=== PATIENT | female | born 1955 | race Caucasian/White ===

== ENCOUNTER 2018-09-08 15:24 | Emergency (ER) | payer OTHER ==
[2018-09-08] MEDS: IBUPROFEN 200 MG TAB PO (16:55)
== END 2018-09-08 18:45 | disposition home or self-care (01) ==
LOC: FTE 15:24
DX: S92.324A Nondisplaced fracture of second metatarsal bone, right foot, initial encounter for closed fracture (principal); W01.198A Fall on same level from slipping, tripping and stumbling with subsequent striking against other object, initial encounter; Y92.9 Unspecified place or not applicable; Z85.42 Personal history of malignant neoplasm of other parts of uterus; Z85.840 Personal history of malignant neoplasm of eye
CPT/HCPCS: 73610; 73610-RT; 73630; 99283-25